=== PATIENT | male | born 1950 | race Caucasian/White ===

== ENCOUNTER 2024-08-10 17:43 | Inpatient (IN) | payer OTHER ==
[2024-08-10] MEDS ORDERED: NOREPINEPHRINE 0.9 % NACL 8 MG/250 ML BAG IVPB ONE (18:25)
[2024-08-10] MEDS ORDERED: NOREPINEPHRINE BITARTRATE 4,000 MCG in DEXTROSE 5%-WATER - 496 ML IV SCH (18:30)
[2024-08-10] MEDS ORDERED: ACETAMINOPHEN INJECTION 100 ML ONE (18:33)
[2024-08-10] MEDS ORDERED: VANCOMYCIN 1 GM PREMIX (F) 1 GM/200 ML BAG ONE (18:33)
[2024-08-10] MEDS: SODIUM CHLORIDE 0.9% 1000 ML INFUS.BAG IV STA (18:52)
[2024-08-10] MEDS: ACETAMINOPHEN 1000 MG/100 ML BAG IVPB ONE (18:52)
[2024-08-10 18:54] LABS: BASO % 0.6 % (0-2.0); EOS % 0.5 % (0-4.5); HEMATOCRIT 25.2 % (35.4-49); HEMOGLOBIN 7.6 GM/dL (11.7-16.9); LYMPH % 20.2 % (8-40); MCH 29.4 pg (25.7-33.7); MCHC 30.1 g/dl (32.0-35.9); MEAN CELL VOLUME 97.6 fl (80-96); MEAN PLT VOLUME 9.4 fl (7.5-11.1); MONO % 8.3 % (3.8-10.2); NEUT % 70.4 % (42.8-82.8); PLATELET COUNT 289 10^3/uL (134-434); RBC 2.59 M/mm3 (4.00-5.60); RDW 17.4 % (11.9-15.9); WHITE BLOOD COUNT 12.2 K/mm3 (4.0-10.0)
[2024-08-10] MEDS: NOREPINEPHRINE 0.9 % NACL 8 MG/250 ML BAG IVPB SCH (18:54)
[2024-08-10] MEDS: VANCOMYCIN 1 GM PREMIX (F) 1 GM/200 ML BAG IVPB ONE (18:55)
[2024-08-10 19:07] LABS: VENOUS BASE EXCESS -1.2 mmol/L (-2-2); VENOUS O2 SATURATION 75.6 % (70-80); VENOUS PCO2 35.8 mmHg (38-52); VENOUS PH 7.426 (7.310-7.410)
[2024-08-10 19:08] LABS: INR 1.6 (0.83-1.09); PROTHROMBIN TIME (PATIENT) 17.4 SEC (9.7-13.0)
[2024-08-10] MEDS ORDERED: PIPERACILLIN/TAZOB 3.375 GM 3.375 GM/50 ML BAG IVPB ONE (19:08)
[2024-08-10 19:10] LABS: ACTIVATED PTT 31.3 SECONDS (25.2-36.5)
[2024-08-10] MEDS: PIPERACILLIN/TAZOB 3.375 GM 3.375 GM/50 ML BAG IVPB ONE (19:23)
[2024-08-10 19:36] LABS: CHLORIDE 131 mmol/L (98-107); POTASSIUM 3.7 mmol/L (3.5-5.1)
[2024-08-10 19:38] LABS: ALBUMIN 1.2 g/dl (3.4-5.0); CALCIUM 7.4 mg/dL (8.5-10.1); CO2 26 mmol/L (21-32); GLUCOSE,RANDOM 153 mg/dL (74-106)
[2024-08-10 19:41] LABS: SGOT/AST 195 U/L (15-37)
[2024-08-10 19:43] LABS: BILIRUBIN,TOTAL 0.4 mg/dL (0.2-1); TOT PROT 4.9 g/dl (6.4-8.2)
[2024-08-10 19:44] LABS: ALK PHOS 111 U/L (45-117); ANION GAP 6 mmol/L (4-13); BLOOD UREA NITROGEN 104.4 mg/dL (7-18); SODIUM 162 mmol/L (136-145)
[2024-08-10 19:50] LABS: SGPT/ALT 180 U/L (13-61)
[2024-08-10 19:55] LABS: LACTIC ACID 2.4 mmol/L (0.4-2.0)
[2024-08-10] MEDS ORDERED: RAPID SEQUENCE INTUBATION KIT NR ONE (19:57)
[2024-08-10] MEDS ORDERED: ROCURONIUM BROMIDE 50 MG/5 ML SYRINGE ONE (20:02)
[2024-08-10] MEDS ORDERED: VASopressin 20 UNITS/ML VIAL IV ONE ×2 (20:12→20:22)
[2024-08-10] MEDS: SODIUM CHLORIDE 0.9% 500 ML INFUS.BAG IV ONE (20:38)
[2024-08-10] MEDS: VASopressin 40 UNITS/100 ML BAG IV SCH (20:38)
[2024-08-10] MEDS: EPINEPHrine 1:10,000 (P-F SYR) 1 MG/10 ML DISP.SYRIN IVPUSH ONE (20:38)
[2024-08-10 21:21] LABS: EPI CELLS 12 /uL (0-25.1); HYALINE CASTS 4 /uL (0-3.1); URINE APPEARANCE CLOUDY; URINE BACTERIA 7 /uL (0-1359); URINE BILIRUBIN 1+ (NEGATIVE); URINE COLOR DK YELLOW; URINE GLUCOSE (UA) NEGATIVE (NEGATIVE); URINE KETONE NEGATIVE (NEGATIVE); URINE LEUK ESTERASE NEGATIVE (NEGATIVE); URINE NITRITE NEGATIVE (NEGATIVE); URINE PROTEIN 1+ (NEGATIVE); URINE UROBILINOGEN 0.2 mg/dL (0.2-1.0); URINE WBC 15 /uL (0-25.8)
[2024-08-10] MEDS ORDERED: ACETAMINOPHEN 1000 MG/100 ML BAG IVPB PRN (21:33)
[2024-08-10] MEDS: HYDROCORTISONE SOD SUCCINATE 100 MG/2 ML VIAL IVPB SCH (21:38)
[2024-08-10] MEDS: PANTOPRAZOLE SODIUM 40 MG VIAL IVPUSH SCH (21:38)
[2024-08-10] MEDS ORDERED: HYDROCORTISONE SOD SUCCINATE 100 MG/2 ML VIAL ONE (21:39)
[2024-08-10] MEDS ORDERED: PANTOPRAZOLE SODIUM 40 MG VIAL ONE (21:39)
[2024-08-10] MEDS ORDERED: ONDANSETRON 4 MG/2 ML VIAL IVPUSH PRN (22:00)
[2024-08-10 22:18] LABS: N-TERMINAL BNP 5302.1 pg/ml (5-450)
[2024-08-10 23:23] LABS: URINE RBC 23.8 /uL (0-23.9)
[2024-08-10] MEDS: FENTANYL NS IVPB 500 MCG/100 ML BAG IVPB SCH (23:30)
[2024-08-10] MEDS: HEPARIN NA (PORCINE) 5,000 UNITS/ML 1ML VIAL SQ SCH (23:50)
[2024-08-10] MEDS: CHLORHEXIDINE GLUCONATE 4% CLEANSER FOR DECOLONIZATION TP SCH (23:55)
[2024-08-11] MEDS: PIPERACILLIN/TAZOB 3.375 GM 3.375 GM in DEXTROSE 5%-WATER - 50 ML IVPB SCH (02:13)
[2024-08-11] MEDS: MUPIROCIN 2% TOPICAL OINTMENT FOR DECOLONIZATION NS SCH (03:15)
[2024-08-11] MEDS ORDERED: ALBUTEROL SO4 2.5/IPRATROPIUM 0.5 INH SOL 3 ML VIAL.NEB. NEB PRN (03:39)
[2024-08-11] MEDS ORDERED: SODIUM CHLORIDE FOR INHALATION 3 ML VIAL.NEB IH PRN (03:41)
[2024-08-11] MEDS: LACTATED RINGERS SOLUTION 1000 ML INFUS.BAG IV ONE (03:50)
[2024-08-11] MEDS: PROPOFOL 1,000,000 MCG/100 ML VIAL IVPB SCH (06:30)
[2024-08-11 07:08] LABS: VENOUS O2 SATURATION 74.3 % (70-80); VENOUS PCO2 37.7 mmHg (38-52); VENOUS PH 7.363 (7.310-7.410)
[2024-08-11 07:15] LABS: ARTERIAL BLD GAS O2 SATURATION 98.5 % (95-98); ARTERIAL BLOOD GAS BASE EXCESS -3.4 mmol/L (-2-2); ARTERIAL BLOOD GAS PO2 124.8 mmHg (80-100); ARTERIAL BLOOD GAS pH 7.405 (7.350-7.450)
[2024-08-11 07:18] LABS: VENT MODE A/C; VENT RATE 16
[2024-08-11] MEDS: CALCIUM GLUCONATE 10% - 1,000 MG/10 ML VIAL IVPB ONE (07:44)
[2024-08-11] MEDS: ALBUTEROL SO4 2.5/IPRATROPIUM 0.5 INH SOL 3 ML VIAL.NEB. NEB SCH (07:50)
[2024-08-11 09:24] LABS: BASO % 0.2 % (0-2.0); EOS % 0.2 % (0-4.5); HEMOGLOBIN 9.7 GM/dL (11.7-16.9); LYMPH % 12.4 % (8-40); MCH 29.7 pg (25.7-33.7); MCHC 31.4 g/dl (32.0-35.9); MEAN CELL VOLUME 94.7 fl (80-96); MEAN PLT VOLUME 9.3 fl (7.5-11.1); MONO % 3.8 % (3.8-10.2); NEUT % 83.4 % (42.8-82.8); PLATELET COUNT 287 10^3/uL (134-434); RBC 3.27 M/mm3 (4.00-5.60); RDW 16.7 % (11.9-15.9); WHITE BLOOD COUNT 11.5 K/mm3 (4.0-10.0)
[2024-08-11 09:31] LABS: INR 1.51 (0.83-1.09); PROTHROMBIN TIME (PATIENT) 16.6 SEC (9.7-13.0)
[2024-08-11 09:33] LABS: ACTIVATED PTT 29.7 SECONDS (25.2-36.5)
[2024-08-11] MEDS ORDERED: ASPIRIN 81 MG CHEWABLE TABLETS PO SCH (10:00)
[2024-08-11] MEDS: ASPIRIN 81 MG CHEWABLE TABLETS PEG SCH (10:31)
[2024-08-11] MEDS: CLOPIDOGREL BISULFATE 75 MG TABLET (FP) PEG SCH (10:31)
[2024-08-11] MEDS ORDERED: VASopressin 20 UNITS/ML VIAL IV ONE (11:28)
[2024-08-11] MEDS: SODIUM CHLORIDE 0.45% 1,000 ML IV SCH (12:38)
[2024-08-11] MEDS: IOHEXOL 300 MG/ML INFUS..BTL IV ONE (12:38)
[2024-08-11] MEDS: FENTANYL IVPB 500 MCG/100 ML BAG IVPB SCH (12:39)
[2024-08-11 13:05] LABS: POTASSIUM 3.8 mmol/L (3.5-5.1)
[2024-08-11 13:07] LABS: CALCIUM 7.4 mg/dL (8.5-10.1)
[2024-08-11 13:08] LABS: ALBUMIN 1.4 g/dl (3.4-5.0); BLOOD UREA NITROGEN 95.2 mg/dL (7-18); MAGNESIUM 2.6 mg/dL (1.8-2.4)
[2024-08-11 13:11] LABS: CREATININE 2.4 mg/dL (0.55-1.3)
[2024-08-11 13:13] LABS: BILIRUBIN,TOTAL 0.7 mg/dL (0.2-1); TOT PROT 5.6 g/dl (6.4-8.2)
[2024-08-11] MEDS: VANCOMYCIN 1 GM PREMIX (F) 1 GM/200 ML BAG IVPB SCH (19:06)
[2024-08-11] MEDS: ROSUVASTATIN CA 10 MG TABLET PO SCH (21:22)
[2024-08-12 07:32] LABS: HEMATOCRIT 30.5 % (35.4-49); HEMOGLOBIN 9.6 GM/dL (11.7-16.9); MCH 29.3 pg (25.7-33.7); MCHC 31.4 g/dl (32.0-35.9); MEAN CELL VOLUME 93.3 fl (80-96); MEAN PLT VOLUME 9.6 fl (7.5-11.1); PLATELET COUNT 287 10^3/uL (134-434); RBC 3.26 M/mm3 (4.00-5.60); RDW 17.1 % (11.9-15.9); WHITE BLOOD COUNT 14.7 K/mm3 (4.0-10.0)
[2024-08-12 08:29] LABS: POTASSIUM 3.6 mmol/L (3.5-5.1)
[2024-08-12 08:31] LABS: ALBUMIN 1.4 g/dl (3.4-5.0); CALCIUM 7.8 mg/dL (8.5-10.1); MAGNESIUM 2.7 mg/dL (1.8-2.4)
[2024-08-12 08:32] LABS: BLOOD UREA NITROGEN 93.5 mg/dL (7-18)
[2024-08-12 08:34] LABS: CREATININE 2.1 mg/dL (0.55-1.3)
[2024-08-12 08:35] LABS: PHOSPHOROUS 4.6 mg/dL (2.5-4.9)
[2024-08-12 08:36] LABS: BILIRUBIN,TOTAL 0.4 mg/dL (0.2-1); TOT PROT 5.8 g/dl (6.4-8.2)
[2024-08-12 09:56] LABS: ANISOCYTOSIS 0; HELMET CELLS 0; HOWELL-JOLLY BODIES 0; MACROCYTOSIS 0; OVALOCYTE 0; ROULEAU 0; SICKELED CELLS 0; TARGET CELLS 0; TEAR DROP CELLS 0; TOXIC GRANULATION 0
[2024-08-12] MEDS: VANCOMYCIN 1 GM PREMIX (F) 1 GM/200 ML BAG IVPB SCH (14:00)
[2024-08-12] MEDS: PIPERACILLIN/TAZOB 3.375 GM 3.375 GM in DEXTROSE 5%-WATER - 50 ML IVPB SCH ×2 (15:08→17:47)
[2024-08-12] MEDS: VANCOMYCIN 1,000 MG in DEXTROSE 5%-WATER - 250 ML IVPB SCH (15:09)
[2024-08-13 08:05] LABS: POTASSIUM 3.2 mmol/L (3.5-5.1)
[2024-08-13 08:08] LABS: HEMOGLOBIN 7.2 GM/dL (11.7-16.9); MCH 29.5 pg (25.7-33.7); MCHC 31.3 g/dl (32.0-35.9); MEAN CELL VOLUME 94.3 fl (80-96); MEAN PLT VOLUME 9.8 fl (7.5-11.1); PLATELET COUNT 225 10^3/uL (134-434); RBC 2.43 M/mm3 (4.00-5.60); RDW 17.3 % (11.9-15.9)
[2024-08-13 08:09] LABS: BLOOD UREA NITROGEN 81.5 mg/dL (7-18); CALCIUM 7.6 mg/dL (8.5-10.1)
[2024-08-13 08:10] LABS: ALBUMIN 1.5 g/dl (3.4-5.0); MAGNESIUM 2.8 mg/dL (1.8-2.4)
[2024-08-13 08:12] LABS: CREATININE 1.9 mg/dL (0.55-1.3); PHOSPHOROUS 3.1 mg/dL (2.5-4.9)
[2024-08-13 08:13] LABS: BILIRUBIN,TOTAL 0.3 mg/dL (0.2-1); TOT PROT 5.8 g/dl (6.4-8.2)
[2024-08-13 09:35] LABS: ANISOCYTOSIS 0; HELMET CELLS 0; HOWELL-JOLLY BODIES 0; MACROCYTOSIS 0; OVALOCYTE 0; ROULEAU 0; SICKELED CELLS 0; TARGET CELLS 0; TEAR DROP CELLS 0; TOXIC GRANULATION 0
[2024-08-13] MEDS: KCL 20 MEQ PREMIX BAG 20 MEQ/100 ML INFUS.BAG IVPB SCH (10:13)
[2024-08-13] MEDS: DEXTROSE 5%-WATER - 1,000 ML IV SCH (11:48)
[2024-08-13] MEDS: HYDROCORTISONE SOD SUCCINATE 100 MG/2 ML VIAL IVPB SCH ×2 (13:52→21:14)
[2024-08-14 07:18] LABS: HEMATOCRIT 30.8 % (35.4-49); HEMOGLOBIN 9.9 GM/dL (11.7-16.9); MCH 29.7 pg (25.7-33.7); MCHC 32.2 g/dl (32.0-35.9); MEAN CELL VOLUME 92.3 fl (80-96); MEAN PLT VOLUME 9.7 fl (7.5-11.1); PLATELET COUNT 214 10^3/uL (134-434); RBC 3.34 M/mm3 (4.00-5.60); RDW 16.2 % (11.9-15.9)
[2024-08-14 07:37] LABS: CHLORIDE 126 mmol/L (98-107); SODIUM 153 mmol/L (136-145)
[2024-08-14 07:44] LABS: CALCIUM 7.3 mg/dL (8.5-10.1)
[2024-08-14 07:45] LABS: ALBUMIN 1.3 g/dl (3.4-5.0); BLOOD UREA NITROGEN 64.4 mg/dL (7-18); CO2 22 mmol/L (21-32); GLUCOSE,RANDOM 179 mg/dL (74-106); MAGNESIUM 2.4 mg/dL (1.8-2.4)
[2024-08-14 07:47] LABS: CREATININE 1.6 mg/dL (0.55-1.3)
[2024-08-14 07:48] LABS: SGOT/AST 36 U/L (15-37); SGPT/ALT 72 U/L (13-61)
[2024-08-14 07:49] LABS: BILIRUBIN,TOTAL 0.3 mg/dL (0.2-1)
[2024-08-14 07:50] LABS: ALK PHOS 107 U/L (45-117); TOT PROT 5.2 g/dl (6.4-8.2)
[2024-08-14 08:10] LABS: ANION GAP 4 mmol/L (4-13); POTASSIUM 2.8 mmol/L (3.5-5.1)
[2024-08-14 10:03] LABS: ANISOCYTOSIS 0; MACROCYTOSIS 0
[2024-08-14] MEDS: POTASSIUM CHLORIDE ORAL LIQUID 20 MEQ/15 ML GT ONE ×2 (10:29→12:04)
[2024-08-14 12:26] VITALS: BMI 20.9
[2024-08-14] MEDS ORDERED: KCL 20 MEQ PREMIX BAG 20 MEQ/100 ML INFUS.BAG IVPB SCH (15:00)
[2024-08-14] MEDS: POTASSIUM CHLORIDE 20 MEQ in DEXTROSE 5%-WATER - 1,000 ML IV SCH (15:26)
[2024-08-14 15:28] LABS: BLOOD UREA NITROGEN 56.6 mg/dL (7-18); CALCIUM 7.4 mg/dL (8.5-10.1); MAGNESIUM 2.3 mg/dL (1.8-2.4)
[2024-08-14 15:31] LABS: CREATININE 1.6 mg/dL (0.55-1.3)
[2024-08-14 18:08] LABS: CK-MM 100 % (97-100)
[2024-08-14 18:08] LABS: CK-MM 100 % (97-100)
[2024-08-15 07:56] LABS: HEMATOCRIT 34.5 % (35.4-49); HEMOGLOBIN 11.3 GM/dL (11.7-16.9); MCH 30.1 pg (25.7-33.7); MCHC 32.7 g/dl (32.0-35.9); MEAN PLT VOLUME 9.7 fl (7.5-11.1); PLATELET COUNT 248 10^3/uL (134-434); RBC 3.75 M/mm3 (4.00-5.60); RDW 15.7 % (11.9-15.9); WHITE BLOOD COUNT 13.6 K/mm3 (4.0-10.0)
[2024-08-15 08:34] LABS: CALCIUM 7.2 mg/dL (8.5-10.1)
[2024-08-15 08:35] LABS: ALBUMIN 1.4 g/dl (3.4-5.0); BLOOD UREA NITROGEN 46.8 mg/dL (7-18); MAGNESIUM 2.1 mg/dL (1.8-2.4)
[2024-08-15 08:38] LABS: CREATININE 1.3 mg/dL (0.55-1.3); PHOSPHOROUS 2.1 mg/dL (2.5-4.9)
[2024-08-15 08:39] LABS: BILIRUBIN,TOTAL 0.5 mg/dL (0.2-1)
[2024-08-15 08:40] LABS: TOT PROT 5.4 g/dl (6.4-8.2)
[2024-08-15] MEDS ORDERED: HYDROCORTISONE SOD SUCCINATE 100 MG/2 ML VIAL IVPB SCH (10:00)
[2024-08-15] MEDS ORDERED: HYDROCORTISONE SOD SUCCINATE 100 MG/2 ML VIAL IVPB ONE (10:00)
[2024-08-15] MEDS: HYDROCORTISONE SOD SUCCINATE 100 MG/2 ML VIAL IVPB SCH (11:24)
[2024-08-15] MEDS: POTASSIUM PHOSPHATE 30 MM in DEXTROSE 5%-WATER - 250 ML IVPB ONE (15:54)
[2024-08-15 16:35] LABS: BLOOD UREA NITROGEN 44.2 mg/dL (7-18); CALCIUM 7.7 mg/dL (8.5-10.1)
[2024-08-15 16:39] LABS: CREATININE 1.4 mg/dL (0.55-1.3)
[2024-08-15] MEDS: POTASSIUM CHLORIDE ORAL LIQUID 20 MEQ/15 ML PO ONE (17:35)
[2024-08-15] MEDS ORDERED: SODIUM CHLORIDE FOR INHALATION 3 ML VIAL.NEB IH PRN (19:01)
[2024-08-15] MEDS ORDERED: ONDANSETRON 4 MG/2 ML VIAL IVPUSH PRN (19:01)
[2024-08-15 20:07] LABS: CK-MM 95 % (97-100)
[2024-08-15] MEDS: ALBUTEROL SO4 2.5/IPRATROPIUM 0.5 INH SOL 3 ML VIAL.NEB. NEB SCH (20:44)
[2024-08-15] MEDS ORDERED: PIPERACILLIN/TAZOB 3.375 GM 50 ML IVPB SCH (21:29)
[2024-08-15] MEDS: HEPARIN NA (PORCINE) 5,000 UNITS/ML 1ML VIAL SQ SCH (21:44)
[2024-08-15] MEDS: ROSUVASTATIN CA 10 MG TABLET GT SCH (21:44)
[2024-08-15] MEDS: PIPERACILLIN/TAZOB 3.375 GM 50 ML IVPB SCH (22:13)
[2024-08-16] MEDS: POTASSIUM CHLORIDE 20 MEQ in DEXTROSE 5%-WATER - 1,000 ML IV SCH (06:37)
[2024-08-16] MEDS: PNEUMOC 20-VAL CONJ-DIP CRM/PF 0.5 ML SYRINGE IM ONE (07:40)
[2024-08-16] MEDS: PIPERACILLIN/TAZOB 3.375 GM 3.375 GM in DEXTROSE 5%-WATER - 50 ML IVPB SCH (07:40)
[2024-08-16 07:56] LABS: HEMOGLOBIN 11.9 GM/dL (11.7-16.9); MCH 30.2 pg (25.7-33.7); MCHC 33.1 g/dl (32.0-35.9); MEAN CELL VOLUME 91.2 fl (80-96); MEAN PLT VOLUME 9.8 fl (7.5-11.1); PLATELET COUNT 242 10^3/uL (134-434); RBC 3.95 M/mm3 (4.00-5.60); RDW 16.1 % (11.9-15.9); WHITE BLOOD COUNT 11.9 K/mm3 (4.0-10.0)
[2024-08-16 08:25] LABS: POTASSIUM 3.5 mmol/L (3.5-5.1)
[2024-08-16 08:31] LABS: ALBUMIN 1.3 g/dl (3.4-5.0); CALCIUM 7.5 mg/dL (8.5-10.1); MAGNESIUM 2.1 mg/dL (1.8-2.4)
[2024-08-16 08:32] LABS: BLOOD UREA NITROGEN 38.9 mg/dL (7-18)
[2024-08-16 08:35] LABS: PHOSPHOROUS 3.7 mg/dL (2.5-4.9)
[2024-08-16 08:36] LABS: CREATININE 1.3 mg/dL (0.55-1.3); TOT PROT 5.3 g/dl (6.4-8.2)
[2024-08-16 08:38] LABS: BILIRUBIN,TOTAL 0.4 mg/dL (0.2-1)
[2024-08-16] MEDS: CLOPIDOGREL BISULFATE 75 MG TABLET (FP) PEG SCH (11:10)
[2024-08-16] MEDS: PANTOPRAZOLE SODIUM 40 MG VIAL IVPUSH SCH (11:10)
[2024-08-16] MEDS: predniSONE 10 MG TABLET (UD) PO SCH (11:10)
[2024-08-16] MEDS: ASPIRIN 81 MG CHEWABLE TABLETS PEG SCH (11:10)
[2024-08-16] MEDS: POTASSIUM CHLORIDE 10 MEQ in DEXTROSE 5%-WATER - 1,000 ML IV SCH (17:21)
[2024-08-17 09:41] LABS: HEMATOCRIT 35.1 % (35.4-49); HEMOGLOBIN 11.4 GM/dL (11.7-16.9); MCH 29.7 pg (25.7-33.7); MCHC 32.3 g/dl (32.0-35.9); MEAN CELL VOLUME 91.8 fl (80-96); MEAN PLT VOLUME 9.5 fl (7.5-11.1); PLATELET COUNT 236 10^3/uL (134-434); RBC 3.83 M/mm3 (4.00-5.60); RDW 15.6 % (11.9-15.9); WHITE BLOOD COUNT 12.2 K/mm3 (4.0-10.0)
[2024-08-17 10:13] LABS: BILIRUBIN,TOTAL 1.5 mg/dL (0.2-1); TOT PROT 5.2 g/dl (6.4-8.2)
[2024-08-17 10:15] LABS: CALCIUM 7.7 mg/dL (8.5-10.1)
[2024-08-17 10:17] LABS: ALBUMIN 1.4 g/dl (3.4-5.0)
[2024-08-17 10:19] LABS: BILIRUBIN,DIRECT 0.3 mg/dL (0.0-0.2)
[2024-08-17 10:20] LABS: CREATININE 1.2 mg/dL (0.55-1.3); PHOSPHOROUS 2.7 mg/dL (2.5-4.9)
[2024-08-17 10:58] LABS: ANISOCYTOSIS 0; MACROCYTOSIS 0
[2024-08-17] MEDS: POTASSIUM CHLORIDE ORAL LIQUID 20 MEQ/15 ML GT ONE (17:31)
[2024-08-18] MEDS: predniSONE 10 MG TABLET (UD) PO SCH (09:20)
[2024-08-18 09:48] LABS: HEMOGLOBIN 11.4 GM/dL (11.7-16.9); MCH 29.6 pg (25.7-33.7); MCHC 32.7 g/dl (32.0-35.9); MEAN CELL VOLUME 90.7 fl (80-96); MEAN PLT VOLUME 9.5 fl (7.5-11.1); PLATELET COUNT 257 10^3/uL (134-434); RBC 3.86 M/mm3 (4.00-5.60); RDW 15.8 % (11.9-15.9); WHITE BLOOD COUNT 11.3 K/mm3 (4.0-10.0)
[2024-08-18 10:12] LABS: POTASSIUM 3.2 mmol/L (3.5-5.1)
[2024-08-18 10:25] LABS: ALBUMIN 1.6 g/dl (3.4-5.0); CALCIUM 7.5 mg/dL (8.5-10.1)
[2024-08-18 10:26] LABS: BLOOD UREA NITROGEN 28.5 mg/dL (7-18); MAGNESIUM 1.7 mg/dL (1.8-2.4)
[2024-08-18 10:28] LABS: CREATININE 1.2 mg/dL (0.55-1.3)
[2024-08-18 10:29] LABS: PHOSPHOROUS 1.9 mg/dL (2.5-4.9)
[2024-08-18 10:30] LABS: BILIRUBIN,TOTAL 0.5 mg/dL (0.2-1)
[2024-08-18 10:31] LABS: TOT PROT 5.4 g/dl (6.4-8.2)
[2024-08-18 10:43] LABS: ANISOCYTOSIS 0; MACROCYTOSIS 0
[2024-08-18] MEDS: POTASSIUM CHLORIDE ORAL LIQUID 20 MEQ/15 ML PO ONE (14:27)
[2024-08-18] MEDS: MAGNESIUM OXIDE 400 MG TABLET (FP) PEG ONE (15:26)
[2024-08-18] MEDS: VITAMIN B COMP W-C 1 EA TABLET (NEPHRO-VITE) GT SCH (15:26)
[2024-08-18] MEDS: POTASSIUM PHOSPHATE 30 MM in DEXTROSE 5%-WATER - 500 ML IVPB ONE (16:23)
[2024-08-18] MEDS: CARVEDILOL 6.25 MG TABLET (FP) GT SCH (21:48)
[2024-08-18] MEDS: METHIMAZOLE 5 MG TABLET GT SCH (21:48)
[2024-08-19 11:16] LABS: HEMATOCRIT 35.5 % (35.4-49); HEMOGLOBIN 11.3 GM/dL (11.7-16.9); MCH 29.5 pg (25.7-33.7); MCHC 31.8 g/dl (32.0-35.9); MEAN CELL VOLUME 92.8 fl (80-96); MEAN PLT VOLUME 9.2 fl (7.5-11.1); PLATELET COUNT 255 10^3/uL (134-434); RBC 3.82 M/mm3 (4.00-5.60); RDW 15.8 % (11.9-15.9); WHITE BLOOD COUNT 11.6 K/mm3 (4.0-10.0)
[2024-08-19 11:38] LABS: POTASSIUM 3.1 mmol/L (3.5-5.1)
[2024-08-19 11:41] LABS: ALBUMIN 1.4 g/dl (3.4-5.0); BLOOD UREA NITROGEN 19.8 mg/dL (7-18); CALCIUM 7.5 mg/dL (8.5-10.1); MAGNESIUM 1.7 mg/dL (1.8-2.4)
[2024-08-19 11:45] LABS: PHOSPHOROUS 2.4 mg/dL (2.5-4.9)
[2024-08-19 11:46] LABS: BILIRUBIN,TOTAL 0.5 mg/dL (0.2-1); TOT PROT 5.2 g/dl (6.4-8.2)
[2024-08-19 14:29] LABS: ANISOCYTOSIS 0; MACROCYTOSIS 0
[2024-08-19] MEDS: POTASSIUM CHLORIDE ORAL LIQUID 20 MEQ/15 ML PO SCH (18:41)
[2024-08-19] MEDS: MAGNESIUM 2GM/50ML STERILE WATER IVPB IVPB ONE ×2 (18:46→19:08)
[2024-08-20 08:41] LABS: HEMATOCRIT 36.2 % (35.4-49); HEMOGLOBIN 11.6 GM/dL (11.7-16.9); MCH 29.8 pg (25.7-33.7); MCHC 32.1 g/dl (32.0-35.9); MEAN CELL VOLUME 92.8 fl (80-96); MEAN PLT VOLUME 9.3 fl (7.5-11.1); PLATELET COUNT 274 10^3/uL (134-434); WHITE BLOOD COUNT 11.7 K/mm3 (4.0-10.0)
[2024-08-20 09:00] LABS: POTASSIUM 4.3 mmol/L (3.5-5.1)
[2024-08-20 09:02] LABS: CALCIUM 7.7 mg/dL (8.5-10.1)
[2024-08-20 09:03] LABS: ALBUMIN 1.6 g/dl (3.4-5.0); BLOOD UREA NITROGEN 17.7 mg/dL (7-18); MAGNESIUM 2.1 mg/dL (1.8-2.4)
[2024-08-20 09:06] LABS: CREATININE 0.9 mg/dL (0.55-1.3); PHOSPHOROUS 1.8 mg/dL (2.5-4.9)
[2024-08-20 09:07] LABS: BILIRUBIN,TOTAL 0.7 mg/dL (0.2-1); TOT PROT 5.6 g/dl (6.4-8.2)
[2024-08-20 09:59] LABS: ANISOCYTOSIS 0; MACROCYTOSIS 0
[2024-08-20] MEDS: LOSARTAN POTASSIUM 25 MG TABLET GT SCH (12:16)
[2024-08-20] MEDS ORDERED: SODIUM PHOSPHATE - 15 MM in DEXTROSE 5%-WATER - 250 ML IVPB ONE (13:30)
[2024-08-20] MEDS: POTASSIUM PHOSPHATE 30 MM in DEXTROSE 5%-WATER - 500 ML IVPB ONE (15:47)
[2024-08-21 08:14] LABS: HEMATOCRIT 34.1 % (35.4-49); HEMOGLOBIN 10.9 GM/dL (11.7-16.9); MCH 29.8 pg (25.7-33.7); MCHC 32.1 g/dl (32.0-35.9); MEAN CELL VOLUME 92.9 fl (80-96); PLATELET COUNT 281 10^3/uL (134-434); RBC 3.67 M/mm3 (4.00-5.60); RDW 16.6 % (11.9-15.9); WHITE BLOOD COUNT 13.6 K/mm3 (4.0-10.0)
[2024-08-21 08:26] LABS: POTASSIUM 4.1 mmol/L (3.5-5.1)
[2024-08-21 08:28] LABS: CALCIUM 7.9 mg/dL (8.5-10.1)
[2024-08-21 08:29] LABS: ALBUMIN 1.6 g/dl (3.4-5.0); BLOOD UREA NITROGEN 16.3 mg/dL (7-18); MAGNESIUM 1.8 mg/dL (1.8-2.4)
[2024-08-21 08:32] LABS: CREATININE 1.1 mg/dL (0.55-1.3); PHOSPHOROUS 2.3 mg/dL (2.5-4.9)
[2024-08-21 08:33] LABS: BILIRUBIN,TOTAL 0.3 mg/dL (0.2-1)
[2024-08-21 08:34] LABS: TOT PROT 5.4 g/dl (6.4-8.2)
[2024-08-21] MEDS: NAPH,MB-DB/K PH,MBDB POWDER PACKET GT ONE (09:18)
[2024-08-21] MEDS ORDERED: SILVER SULFADIAZINE 1% TOP CREAM 400 GM JAR TP SCH (10:45)
[2024-08-21] MEDS: SILVER SULFADIAZINE 1% TOP CREAM 400 GM JAR TP SCH (12:40)
[2024-08-22 06:50] LABS: HEMATOCRIT 32.9 % (35.4-49); HEMOGLOBIN 10.6 GM/dL (11.7-16.9); MCHC 32.3 g/dl (32.0-35.9); MEAN CELL VOLUME 92.8 fl (80-96); MEAN PLT VOLUME 8.9 fl (7.5-11.1); PLATELET COUNT 268 10^3/uL (134-434); RBC 3.54 M/mm3 (4.00-5.60); RDW 16.2 % (11.9-15.9)
[2024-08-22 07:15] LABS: POTASSIUM 3.8 mmol/L (3.5-5.1)
[2024-08-22 07:21] LABS: CALCIUM 8.1 mg/dL (8.5-10.1)
[2024-08-22 07:22] LABS: ALBUMIN 1.5 g/dl (3.4-5.0); BLOOD UREA NITROGEN 16.6 mg/dL (7-18)
[2024-08-22 07:23] LABS: BILIRUBIN,TOTAL 0.3 mg/dL (0.2-1)
[2024-08-22 07:24] LABS: TOT PROT 5.1 g/dl (6.4-8.2)
[2024-08-22] MEDS: SILVER SULFADIAZINE 1% TOP CREAM 400 GM JAR TP SCH (09:59)
[2024-08-22 14:40] VITALS: BP 101/51; PULSE 85; RESP 18; TEMP 99
== END 2024-08-22 14:59 | DRG 870 ==
LOC: JER 17:43 → JERBED 19:15 → JICU 22:29 → J4S 08-15 18:09
PROVIDERS: ADMIT Internal Medicine; ATTEND Nurse Practitioner Family
PROC: 4A133B1 Monitoring of Arterial Pressure, Peripheral, Percutaneous Approach (ICD-10-PCS; principal; 2024-08-11)
PROC: 5A1955Z Respiratory Ventilation, Greater than 96 Consecutive Hours (ICD-10-PCS; 2024-08-11)
PROC: 4A133J1 Monitoring of Arterial Pulse, Peripheral, Percutaneous Approach (ICD-10-PCS; 2024-08-11)
PROC: 05HN33Z Insertion of Infusion Device into Left Internal Jugular Vein, Percutaneous Approach (ICD-10-PCS; 2024-08-11)
PROC: B544ZZA Ultrasonography of Left Jugular Veins, Guidance (ICD-10-PCS; 2024-08-11)
PROC: 0BH17EZ Insertion of Endotracheal Airway into Trachea, Via Natural or Artificial Opening (ICD-10-PCS; 2024-08-11)
PROC: 30233N1 Transfusion of Nonautologous Red Blood Cells into Peripheral Vein, Percutaneous Approach (ICD-10-PCS; 2024-08-11)
DX: A41.89 Other specified sepsis (principal); G93.41 Metabolic encephalopathy; R57.0 Cardiogenic shock; R65.21 Severe sepsis with septic shock; J96.01 Acute respiratory failure with hypoxia; I21.A1 Myocardial infarction type 2; J15.1 Pneumonia due to Pseudomonas; I44.2 Atrioventricular block, complete; N17.9 Acute kidney failure, unspecified; I69.354 Hemiplegia and hemiparesis following cerebral infarction affecting left non-dominant side; I69.351 Hemiplegia and hemiparesis following cerebral infarction affecting right dominant side; I13.0 Hypertensive heart and chronic kidney disease with heart failure and stage 1 through stage 4 chronic kidney disease, or unspecified chronic kidney disease; I50.42 Chronic combined systolic (congestive) and diastolic (congestive) heart failure; E87.20 Acidosis, unspecified; D68.9 Coagulation defect, unspecified; N18.30 Chronic kidney disease, stage 3 unspecified; G30.9 Alzheimer's disease, unspecified; F02.80 Dementia in other diseases classified elsewhere, unspecified severity, without behavioral disturbance, psychotic disturbance, mood disturbance, and anxiety; D50.9 Iron deficiency anemia, unspecified; N40.0 Benign prostatic hyperplasia without lower urinary tract symptoms; K21.9 Gastro-esophageal reflux disease without esophagitis; L89.150 Pressure ulcer of sacral region, unstageable; L89.620 Pressure ulcer of left heel, unstageable; I48.91 Unspecified atrial fibrillation; I25.10 Atherosclerotic heart disease of native coronary artery without angina pectoris; E05.90 Thyrotoxicosis, unspecified without thyrotoxic crisis or storm; D72.829 Elevated white blood cell count, unspecified; R50.9 Fever, unspecified; E87.6 Hypokalemia; E83.42 Hypomagnesemia; E83.39 Other disorders of phosphorus metabolism; Z95.810 Presence of automatic (implantable) cardiac defibrillator
CPT/HCPCS: 0241U-QW; 36415; 36430; 36600; 71045-TC-FY; 74240-TC-FY; 76705-TC; 80048; 80053; 81003; 82248; 82308; 82550; 82552; 82553; 82803; 82962; 83036; 83605; 83735; 83880; 83930; 84100; 84436; 84439; 84443; 84481; 84484; 85025; 85027; 85610; 85730; 86140; 86850; 86900; 86901; 86922; 87040; 87070; 87086; 87186; 87205; 87481; 87635; 93005; 93010; 93306-TC; 94002; 94640; 97161-GP; 99291; G0480; J0131; J1250; J1644; J3490; P9058